=== PATIENT | female | born 1960 | race Caucasian/White ===

== ENCOUNTER → 2020-03-22 13:09 | Outpatient (CLI) | payer OTHER, SELFPAY ==
[2020-03-22] MEDS: COVID-19 VACC #1, MRNA(MOD) 100 MCG/0.5 ML VIAL IM (13:19)
== END ==
PROVIDERS: Visit Provider Internal Medicine
DX: Z23 Encounter for immunization (principal)
CPT/HCPCS: 0011A; 91301

== ENCOUNTER → 2020-04-19 14:15 | Outpatient (CLI) | payer OTHER, SELFPAY ==
[2020-04-19] MEDS: COVID-19 VACC #2, MRNA(MOD) 100 MCG/0.5 ML VIAL IM (14:22)
== END ==
PROVIDERS: Visit Provider Internal Medicine
DX: Z23 Encounter for immunization (principal)
CPT/HCPCS: 0012A; 91301

== ENCOUNTER → 2023-01-25 15:06 | Outpatient (CLI) | payer OTHER, SELFPAY ==
--- NOTE | 2023-01-25 | DI.MG.S_ITS ---
BILATERAL DIGITAL SCREENING MAMMOGRAM 3D/2D WITH CAD WITH AUGMENTATION: 01/25/2023 CLINICAL: Baseline exam. Routine screening. No prior exams were available for comparison. There are scattered areas of fibroglandular density in both breasts (category b / 25%-50% glandular tissue). Current study was also evaluated with a Computer Aided Detection (CAD) system. Bilateral breast implants are intact. No significant masses, calcifications, or other findings are seen in either breast. IMPRESSION: NEGATIVE There is no mammographic evidence of malignancy. A 1 year screening mammogram is recommended. Based on the Tyrer Cuzick model (a risk assessment model) the patient's lifetime risk is 5.7% and her 10 year risk is 2.3%. According to the ACR, ACS, and NCCN guidelines, an annual breast MRI exam along with mammogram is recommended if the patient's lifetime risk is 20% or greater. This exam was interpreted at Station ID: [id number]. NOTE: For mammograms, a report in lay terms will be sent to the patient. Approximately 15% of breast malignancies will not be visualized mammographically. In the management of a palpable breast mass, a negative mammogram must not discourage biopsy of a clinically suspicious lesion. Electronically Signed By: Diann herrera/nimisha:01/26/2023 16:34:22 letter sent: Normal Exam ACR BI-RADS Category 1: Negative 3341F
== END ==
PROVIDERS: PCP Registered Nurse; Referring Provider Registered Nurse; Visit Provider Registered Nurse
DX: Z12.31 Encounter for screening mammogram for malignant neoplasm of breast (principal)
CPT/HCPCS: 77063; 77067

== ENCOUNTER → 2023-07-29 10:03 | Outpatient (CLI) | payer SELFPAY ==
--- NOTE | 2023-07-29 10:12 | DI.RAD.S_ITS ---
PROCEDURE: XR HAND LT MIN 3V INDICATIONS: HAND PAIN TECHNIQUE: 4 views of the hand(s) acquired. COMPARISON: Right hand radiographic series dated same day.. FINDINGS: Bones: No no acute fractures or dislocations. Carpal bones are normally aligned. No suspicious bony lesions. Moderate degenerative changes of the left hand involving the distal and proximal interphalangeal joints and most pronounced over the 2nd and 3rd fingers. Soft tissues: No suspicious soft tissue calcifications. IMPRESSION: Left hand without acute fracture or dislocation. 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 Dictated by: Nikita Greene M.D. on 07/29/2023 at 16:23 Approved by: Nikita Greene M.D. on 07/29/2023 at 16:25
--- NOTE | 2023-07-29 10:12 | DI.RAD.S_ITS ---
PROCEDURE: XR HAND RT MIN 3V INDICATIONS: HAND PAIN TECHNIQUE: 3 views of the hand(s) acquired. COMPARISON: None. FINDINGS: Bones: No fractures or dislocations. Carpal bones are normally aligned. No suspicious bony lesions. Moderate-severe degenerative changes of the right hand distal and proximal interphalangeal joints most prominent in the 2nd and 3rd fingers. There are also moderate degenerative changes of the right thumb interphalangeal joint. Soft tissues: No suspicious soft tissue calcifications. IMPRESSION: Right hand without acute fracture or dislocation. Moderate-severe degenerative changes of the right hand distal and proximal interphalangeal joints of the 2nd and 3rd fingers. Dictated by: Nikita Greene M.D. on 07/29/2023 at 16:21 Approved by: Nikita Greene M.D. on 07/29/2023 at 16:23
== END ==
LOC: RAD 10:10
PROVIDERS: PCP Registered Nurse; Referring Provider Registered Nurse; Visit Provider Registered Nurse
DX: M19.049 Primary osteoarthritis, unspecified hand (principal); Z82.61 Family history of arthritis
CPT/HCPCS: 73130

== ENCOUNTER 2024-09-10 00:18 | Emergency (ER) | payer SELFPAY ==
[2024-09-10] VITALS (8 sets, daily range): BP systolic 112–149; BP diastolic 56–93; PULSE 57–125; RESP 14–24; TEMP 36.7; O2SAT 97–100; BMI 18.8
--- NOTE | 2024-09-10 00:37 | ED.ARRPALP ---
HPI - Arrhythmia/Palpitations General Chief Complaint: Syncope Stated Complaint: Palpitations, LOC 20mins ago, Chest Tightness Time Seen by Provider: 09/10/24 00:37 History of Present Illness HPI narrative: Patient is a 64-year-old female past medical history of palpitations takes metoprolol for this comes into the ED from home for evaluation of palpitations syncope, states that at around midnight she was taking her dog out to use the restroom which she states she normally does and states that she ended up waking up on the floor. She states that since then she is having palpitations. She does state that she has a bump to the top of her head but does not take any blood thinners denies any other injuries at this time, she denies any actual chest pain but does feel the palpitations. Patient denies any other symptoms at this time. Patient does state that she drinks a lot of coffee throughout the day and does end her day with a glass of wine. Related Data Home Medications ?Medication ?Instructions ?Recorded ?Confirmed gabapentin 300 mg capsule mg PO 09/10/24 metoprolol succinate 25 mg 25 mg PO DAILY 09/10/24 09/10/24 tablet,extended release 24 hr nitroglycerin 0.3 mg sublingual mg sublingual 09/10/24 tablet trazodone 50 mg tablet 50 mg PO ONCE PM 09/10/24 09/10/24 Allergies Allergy/AdvReac Type Severity Reaction Status Date / Time No Known Drug Allergies Allergy Verified 09/10/24 00:28 Review of Systems Review of Systems Narrative: General: Denies fever, chills, weight loss HEENT: Positive ground level fall, bump to the top of the head Denies headache, eye drainage, eye irritation, head trauma, sore throat, voice change Cardiovascular: Positive palpitations Denies any chest pain, tachycardia Respiratory: Denies any shortness of breath, cough, wheeze, stridor GI/: Denies any abdominal pain, nausea, vomiting, diarrhea, bright red blood per rectum, melanotic stools, urinary frequency, urinary retention, dysuria, hematuria MSK: Denies any joint pain, muscle pains, swelling Skin: Denies any rashes, lesions, discoloration Neuro: Positive syncope, Denies any headache, lightheadedness, dizziness, fainting, weakness Psych: Denies SI/HI Patient History Social History Smoking Status: Never smoker Exam Narrative Exam Narrative: General: Cooperative, well-developed, not in acute distress HEENT: Hematoma noticed the top of the head no overlying erythema abrasion laceration or palpable gross step-off PERRLA, normal sclera, eyelids normal Neck: Active full range of motion, atraumatic Chest: Normal to inspection, negative crepitus, no overlying erythema ecchymosis Respiratory: Normal respiratory effort, not in acute respiratory distress, clear to auscultation bilaterally negative cough, wheeze, tachypnea, rhonchi, rales Cardiology: Irregularly irregular, negative murmurs rubs gallops GI/: No tenderness to palpation, soft, non rigid, normal to inspection, exam deferred MSK: Full active range of motion in all 4 extremities, atraumatic, no tenderness to palpation of any bony prominences Skin: No rashes or lesions noted Neuro: Alert awake oriented x3, moves all 4 extremities spontaneously, cranial nerves intact, able to answer all questions appropriately follows commands appropriately Psych: Cooperative, negative suicidal or homicidal ideations Initial Vital Signs Initial Vital Signs: Vital Signs Pulse Rate 124 H 09/10/24 00:28 Blood Pressure 149/93 H 09/10/24 00:28 Pulse Oximetry 100 09/10/24 00:28 Course Orders Ordered: ED Orders 09/10/24 00:40 XR chest 1V Stat EKG-12 Lead Stat 09/10/24 00:55 CT head/brain wo con Stat 09/10/24 01:10 Complete Blood Count AUTO DIFF Stat Comprehensive Metabolic Panel Stat D Dimer Stat Lipase Stat MAG [Magnesium] Stat PTT Partial Thromboplastin [place] Stat Prothrombin Time INR Stat Troponin & CK Cardiac Panel Stat Discontinued Medications Sodium Chloride (Normal Saline 0.9%) 1,000 mls @ 1,000 mls/hr IV BOLUS ONE Stop: 09/10/24 01:38 Last Admin: 09/10/24 01:19 Dose: 1,000 mls/hr Documented By: ANAIS Magnesium Sulfate (Magnesium Sulfate) 2 gm in 50 mls @ 150 mls/hr IV NOW ONE Stop: 09/10/24 01:14 Last Infusion: 09/10/24 02:14 Dose: Infused Vital Signs Vital signs: Vital Signs - 8 hr 09/10/24 00:28 09/10/24 00:28 09/10/24 00:30 Temperature Pulse Rate 124 H 105 H Respiratory Rate Blood Pressure 149/93 H Pulse Oximetry 100 100 Oxygen Delivery Method 09/10/24 00:30 09/10/24 00:32 09/10/24 01:00 Temperature 98.0 F Pulse Rate 112 H 125 H Respiratory Rate 20 24 Blood Pressure 124/79 124/79 Pulse Oximetry 97 Oxygen Delivery Method Room Air 09/10/24 01:06 09/10/24 01:06 09/10/24 01:30 Temperature Pulse Rate 67 61 Respiratory Rate 21 15 Blood Pressure 112/70 Pulse Oximetry 99 99 Oxygen Delivery Method MDM - Arrhythmia/Palpitations Differential Diagnosis Differential diagnosis: Likely palpitations, sinus tachycardia, artial fibrillation, artial flutter, supraventricular tachycardia and other (CVA, electrolyte abnormality, pneumonia) Lab Data 09/10/24 01:10 09/10/24 01:10 Labs: Lab Results 09/10/24 Range/Units 01:10 WBC 4.6 (4.5-11.0) X10^3/uL RBC 4.27 (4.0-5.2) X10^6/uL Hgb 13.4 (12.0-16.0) g/dL Hct 38.5 (36-46) % MCV 90.0 (80-100) fL MCH 31.3 (26-34) PG MCHC 34.7 (30-36) % RDW 13.2 (11.6-14.8) % Plt Count 239 (150-400) X10^3/uL Neut % (Auto) 39.8 L (50-75) % Lymph % (Auto) 46.3 H (25-40) % [place] % (Auto) 8.4 (3-14) % Eos % (Auto) 5.2 H (2-4) % Baso % (Auto) 0.3 (0-2) % Neut # (Auto) 1800 (3992-5762) /uL Lymph # (Auto) 2100 (5426-2005) /uL [place] # (Auto) 400 (0-900) /uL Eos # (Auto) 200 (0-450) /uL Baso # (Auto) 0 (0-100) /uL PT 11.0 (9.4-12.5) SECONDS INR 1.0 (0.9-1.3) APTT 26 (25.1-36.5) SECONDS D-Dimer < 215 (<500) ng/ml Sodium 140 (137-145) mmol/L Potassium 3.7 (3.4-5.1) mmol/L Chloride 107 (98-107) mmol/L Carbon Dioxide 25 (22-32) mmol/L BUN 15 (7-17) mg/dL Creatinine 0.51 L (0.52-1.04) mg/dL Estimated GFR > 60 (>60) mL/min BUN/Creatinine Ratio 29.4 H (6-22) Glucose 117 H (70-99) mg/dL Calcium 9.3 (8.4-10.2) mg/dL Magnesium 2.0 (1.6-2.3) mg/dL Total Bilirubin 0.5 (0.2-1.3) mg/dL AST 28 (14-36) IU/L ALT 16 (<35) IU/L Alkaline Phosphatase 73 (38-126) U/L Total Creatine Kinase 95 (30-135) U/L Troponin I < 0.012 (0.01-0.034) ng/mL Total Protein 7.1 (6.3-8.2) g/dL Albumin 4.4 (3.5-5.0) g/dL Globulin 2.7 (1.7-4.1) g/dL Albumin/Globulin Ratio 1.6 (1.0-2.8) Lipase 196 (23-300) U/L Imaging Data Chest x-ray: Radiologist's Impresson: [address] [address] XRay Report Signed Patient: Cookie Luna MR#: [id number] : 1960 Acct:[id number] Age/Sex: 64 / F Date of Service: 09/10/24 Loc: ED Accession Number: [id number] Procedure: XR chest 1V Ordering Provider: Doug Ugarte D.O. PROCEDURE: XR CHEST 1V INDICATIONS: palpitations TECHNIQUE: One view of the chest was acquired. COMPARISON: None. FINDINGS: Surgical changes and devices: None. Lungs and pleura: Lungs are clear. No pleural effusions or pneumothorax. Mediastinum: Mediastinal contours appear normal. Heart size is normal. Bones and chest wall: No suspicious bony lesions. Overlying soft tissues appear unremarkable. IMPRESSION: No acute cardiopulmonary abnormality is seen. ECG Data Interpretation: EKG interpreted ED physician sinus bradycardia 59 beats per minute QTC 425, normal axis nonspecific ST changes no STEMI MDM Narrative Medical decision making narrative: Patient is a 64-year-old female with a past medical history of palpitations coming into the emergency department for chest tightness/palpitations/syncope, states that at midnight she was taking her dog out and states that she woke up on the floor, she states that she did notice a a bump on the back of/side of her head but denies any other injuries, she is not on any blood thinners, has no tenderness to palpation of the cervical spine, there is no other tenderness to palpation of any bony prominences, patient is without any focal deficits NIH of 0, states that she does still feel some palpitations she states that she normally takes metoprolol for this, at time of initial evaluation patient in AFib, patient with a CHADS-VASc score of 1, 0114: Upon reviewing the monitor patient does appear to be in normal sinus, did re-evaluate the patient she states that she now feels completely normal. Patient did flip out of AFib herself without any intervention. We will continue workup at this time but patient now completely asymptomatic Discharge Plan Departure Patient Disposition: Home Clinical Impression: New onset a-fib Activity Restrictions/Additional Instructions: Please continue taking your metoprolol 25 mg, you may take an additional dose if you feel like your symptoms of palpitations are elevated. Please follow up with Cardiology and follow up with your primary care doctor Please read the discharge instructions sheet carefully and bring all papers to all doctor follow-up visits, as it may contain information that your doctor may want to see. Disease processes change and evolve, if your symptoms worsen or if you develop any new symptoms that are concerning to you please return for evaluation. Your evaluation today does not show any evidence of any life-threatening/serious illnesses requiring admission to the hospital or surgery. Please follow-up with your doctor for re-evaluation in approximately 1 day. Seek immediate medical attention for any worrisome symptoms. *If you do not have a primary care provider please contact the [facility] Resource line at [phone]. They will ask some questions about your medical history and help get you set up with a doctor in the community. Prescriptions: No Action trazodone 50 mg tablet 50 mg PO ONCE PM nitroglycerin 0.3 mg tablet, sublingual sublingual gabapentin 300 mg capsule PO metoprolol succinate 25 mg tablet extended release 24 hr 25 mg PO DAILY Referrals: Gwen Euceda ARNP [Primary Care Provider, Family Practice] Asuncion Arzate MD [Physician, Cardiology] - As soon as possible Referral Note: New onset AFib Clinical Impression: New onset a-fib Stand Alone Forms: Patient Portal/API
--- NOTE | 2024-09-10 00:40 | EKG_ITS ---
[address] [address] Test Date: 2024-09-10 Pat Name: Cookie Luna Department: [facility] Room: Gender: Female Home Health Administrator: LIBERTAD CALERO : 1960 Requested By: Order Number: [id number] Reading MD: Josh Coy Measurements Intervals [place] Rate: 59 P: 74 HI: 148 QRS: 56 QRSD: 86 T: 52 QT: 430 QTc: 425 Interpretive Statements Sinus bradycardia Electronically Signed On 09-13-2024 13:05:20 PDT by Josh Coy
--- NOTE | 2024-09-10 00:40 | DI.RAD.S_ITS ---
PROCEDURE: XR CHEST 1V INDICATIONS: palpitations TECHNIQUE: One view of the chest was acquired. COMPARISON: None. FINDINGS: Surgical changes and devices: None. Lungs and pleura: Lungs are clear. No pleural effusions or pneumothorax. Mediastinum: Mediastinal contours appear normal. Heart size is normal. Bones and chest wall: No suspicious bony lesions. Overlying soft tissues appear unremarkable. IMPRESSION: No acute cardiopulmonary abnormality is seen. Dictated by: Tyson George M.D. on 09/10/2024 at 1:05 Approved by: Tyson George M.D. on 09/10/2024 at 1:06
--- NOTE | 2024-09-10 00:55 | DI.CT.S_ITS ---
PROCEDURE: CT HEAD/BRAIN WO CON INDICATIONS: trauma, fell / syncope / new onset afib TECHNIQUE: Noncontrast 4.5 mm thick angled axial sections acquired from the foramen magnum to the vertex, with coronal and sagittal reformats. For radiation dose reduction, the following was used: automated exposure control, adjustment of mA and/or kV according to patient size. COMPARISON: None. FINDINGS: Image quality: Motion degraded. CSF spaces: Basal cisterns are patent. No extra-axial fluid collections. Ventricles are normal in size and shape. Brain: No midline shift. No intracranial mass effect or hemorrhage. Richter- white matter interface is normal. Skull and face: Calvarium and visualized facial bones are intact, without suspicious lesions. Sinuses: Visualized sinuses and mastoids are clear. IMPRESSION: No acute intracranial pathology. Dictated by: Tyson George M.D. on 09/10/2024 at 1:28 Approved by: Tyson George M.D. on 09/10/2024 at 1:29
--- NOTE | 2024-09-10 00:59 | PC.NURSE ---
daughter Miko Luna [phone]
[2024-09-10] MEDS: SODIUM CHLORIDE 0.9% 1,000 ML 1000 ML IV (01:19)
[2024-09-10] MEDS: MAGNESIUM SULFATE 2 GM/50 ML PIGGYBACK IV (01:20)
[2024-09-10 01:22] LABS: Add Manual Diff / Slide Review NO; Hematocrit 38.5 % (36-46); Hemoglobin 13.4 g/dL (12.0-16.0); Lymphocytes Absolute Auto 2100 /uL (1100-4500); Mean Corpuscular HGB Conc 34.7 % (30-36); Mean Corpuscular Hemoglobin 31.3 PG (26-34); Mean Corpuscular Volume 90.0 fL (80-100); Platelet Count 239 X10^3/uL (150-400)
[2024-09-10 01:27] LABS: INR 1.0 (0.9-1.3); Prothrombin Time 11.0 SECONDS (9.4-12.5)
[2024-09-10 01:30] LABS: PTT Partial Thromboplastin Tim 26 SECONDS (25.1-36.5)
[2024-09-10 01:41] LABS: Alanine Aminotransferase 16 IU/L (<35); Albumin 4.4 g/dL (3.5-5.0); Albumin Globulin Ratio 1.6 (1.0-2.8); Alkaline Phosphatase 73 U/L (38-126); Blood Urea Nitrogen 15 mg/dL (7-17); Calcium 9.3 mg/dL (8.4-10.2); Carbon Dioxide 25 mmol/L (22-32); Chloride 107 mmol/L (98-107); Creatine Kinase 95 U/L (30-135); Estimated Glomerular Filt Rate > 60 mL/min (>60); Globulin 2.7 g/dL (1.7-4.1); Glucose 117 mg/dL (70-99); HEMOLYSIS 24 (0-50); Lipase 196 U/L (23-300); Magnesium 2.0 mg/dL (1.6-2.3); Potassium 3.7 mmol/L (3.4-5.1); Sodium 140 mmol/L (137-145); Total Protein 7.1 g/dL (6.3-8.2)
[2024-09-10 01:53] LABS: Troponin I < 0.012 ng/mL (0.01-0.034)
== END 2024-09-10 02:36 | disposition home or self-care (01) ==
PROVIDERS: Emergency Provider Student in an Organized Health Care Education/Training Program; PCP Registered Nurse
DX: I48.91 Unspecified atrial fibrillation (principal); R55 Syncope and collapse; S00.93XA Contusion of unspecified part of head, initial encounter; W18.30XA Fall on same level, unspecified, initial encounter
CPT/HCPCS: 36415; 70450; 71045; 80053; 82550; 83690; 83735; 84484; 85025; 85379; 85610; 85730; 93005; 96365; 99284; J3475